=== PATIENT | male | born 1975 | race Caucasian/White ===

== ENCOUNTER 2020-08-29 09:40 | Emergency (ER) | payer OTHER, BC, SELFPAY ==
[2020-08-29 09:38] VITALS: BP 160/97; PULSE 65; RESP 18; TEMP 36.8; O2SAT 99
[2020-08-29] MEDS: TETANUS,DIPHTHERIA,AC PERTUSSIS ADULT (0.5 ML) BOOSTRIX IM (10:35)
--- NOTE | 2020-08-29 10:53 | ED.GENADULT ---
HPI - General Adult General Chief complaint: Wound/Laceration Stated complaint: WOUND Time Seen by Provider: 08/29/20 09:51 Source: patient Mode of arrival: ambulatory Limitations: no limitations History of Present Illness HPI narrative: Patient is a 45-year-old male who presents to emergency department for evaluation of laceration to the left wrist cut himself with a knife while cutting a zip tie patient denies other injuries or complaints notes tetanus is not up-to-date injury occurred just prior to arrival Related Data Allergies Allergy/AdvReac Type Severity Reaction Status Date / Time No Known Allergies Allergy Verified 08/29/20 09:41 Review of Systems Review of Systems: All systems reviewed & are unremarkable except as noted in HPI and below PMFSH Family History Family History (Updated 06/27/16 @ 23:19 by DOCTOR UNKNOWN) Father Hypertension Family history of elevated blood lipids Mother Hypertension Family history of elevated blood lipids Family history of diabetes mellitus in first degree relative Social History Social History Smoking status: Never smoker Alcohol intake: never Exam Narrative: Exam Narrative: GENERAL: Well-appearing, well-nourished, and in no acute distress. HEAD: Normocephalic, atraumatic. EYES: PERRLA and EOMI. ENT: Nares clear, no rhinorrhea or epistaxis. Mucous membranes moist. EXTREMITIES: Normal range of motion. No edema. SKIN: Warm, dry, no rash. 1 cm laceration to the dorsal surface left wrist superficial in nature NEURO: No focal deficits. Alert and oriented x3. Neurovascularly intact PSYCH: Normal mood and affect. Course Course Emergency Course: Patient's wound closed in the emergency department with abbe given a staple remover tetanus updated patient provided with instructions for follow-up and reasons to return Vital Signs Vital signs: Vital Signs Temperature 98.3 F 08/29/20 09:38 Pulse Rate 65 08/29/20 09:38 Respiratory Rate 18 08/29/20 09:38 Blood Pressure 160/97 H 08/29/20 09:38 Pulse Oximetry 99 08/29/20 09:38 Temperature 98.3 F 08/29/20 09:38 Pulse Rate 65 08/29/20 09:38 Respiratory Rate 18 08/29/20 09:38 Blood Pressure 160/97 H 08/29/20 09:38 Pulse Oximetry 99 08/29/20 09:38 Procedures Laceration Laceration 1: Date: 08/29/20 Time: 10:55 Site: upper extremity Side (If applicable): left Size (cm): 1 Description: linear Depth: simple, single layer Local Anesthetic: none Pre-repair: wound explored, irrigated and irrigated extensively ====== Skin Level ====== Skin layer closed with: abbe ====== Subcutaneous Layer ====== ====== Muscle Layer ====== ====== Tendon Layer ====== Dressing: Antibiotic nonadhesive 4 x 4 and [place] Medical Decision Making MDM Narrative Medical decision making narrative: Patients injury or pain is consistent with musculoskeletal etiology. No signs of neurological or vascular compromise on exam. Compartments and tisues are soft without signs of compartment syndrome. Pain is felt appropriate for further evaluation on an outpatient basis. Vital Signs Vital Signs: Vital Signs Temperature 98.3 F 08/29/20 09:38 Pulse Rate 65 08/29/20 09:38 Respiratory Rate 18 08/29/20 09:38 Blood Pressure 160/97 H 08/29/20 09:38 Pulse Oximetry 99 08/29/20 09:38 Temperature 98.3 F 08/29/20 09:38 Pulse Rate 65 08/29/20 09:38 Respiratory Rate 18 08/29/20 09:38 Blood Pressure 160/97 H 08/29/20 09:38 Pulse Oximetry 99 08/29/20 09:38 Discharge Plan Discharge Clinical Impression: Laceration Patient Disposition: Home, Self-Care Condition: Stable Instructions: Antibiotic Form, Laceration (ED) Additional Instructions: Keep wound clean and dry. Do not soak, take baths, or swim until wound is completely healed
== END 2020-08-29 11:01 | disposition home or self-care (01) ==
PROVIDERS: Emergency Provider Emergency Medicine; PCP Family Medicine
DX: S61.512A Laceration without foreign body of left wrist, initial encounter (principal); Z23 Encounter for immunization; W26.0XXA Contact with knife, initial encounter
CPT/HCPCS: 12001; 90471; 90715; 99282